=== PATIENT | female | born 1965 | race Hispanic/Latino ===

== ENCOUNTER 2018-05-17 11:02 | Emergency (ER) | payer BC ==
[2018-05-17 11:03] VITALS: BMI 21.7
[2018-05-17 12:01] VITALS: TEMP 98
[2018-05-17] MEDS ORDERED: Sodium Chloride 0.9% 1,000 ML IV STA (12:26)
[2018-05-17] MEDS ORDERED: Oxycodone/Acetaminophen 5/325 mg Tab PO STA (12:26)
--- NOTE | 2018-05-17 12:38 | ED PDOC ---
Arrival/HPI - General Chief Complaint: Abnormal Skin Integrity Time Seen by Provider: 05/17/18 11:57 Historian: Patient - History of Present Illness Narrative History of Present Illness (Text): 05/17/18 12:30 52 year old female, with no significant past medical history, who presents to the Emergency department complaining of a worsening painful cyst on her neck since 05/14/18. Patient states she went to Urgent Care on 05/14, where she was given Bactrin. Patient notes she went to her PMD on 05/15, where she was prescribed Cephalexin 500mg for 8 days and Mupirocin. Patient reports her daughter thought it was a blackhead about a month ago, so she squeezed it with her fingers and some "stuff" came out and recently this cyst resulted in same area. Patient states she had one on her arm in the past so she presented to Urgent Care, where they "cut it out." Patient notes that she had some pimple- like stiff blemishes emerge on her face in her 30's and then toward late 30's- 40's, the first cyst emerged on her arm and now her neck. Patient notes mild nausea and headaches. Pt denies any fever, chills, dizziness, or any other complaints. PMD: Dave Jimenez Time/Duration: > week (Pt notes painful cyst since ) Symptom Onset: Sudden Symptom Course: Unchanged Quality: Other (Pt describes as painful) Activities at Onset: Light Past Medical History - Provider Review Nursing Documentation Reviewed: Yes - Reproductive Menopause: Yes - Cardiac Hx Hypertension: Yes - Pulmonary Hx Respiratory Disorders: No - Neurological Hx Neurological Disorder: No - HEENT Hx HEENT Disorder: No - Renal Hx Renal Disorder: No - Endocrine/Metabolic Hx Endocrine Disorders: No - Hematological/Oncological Hx Blood Disorders: No - Integumentary Hx Dermatological Disorder: No - Musculoskeletal/Rheumatological Hx Musculoskeletal Disorders: No - Gastrointestinal Hx Gastrointestinal Disorders: No - Genitourinary/Gynecological Hx Genitourinary Disorders: No - Psychiatric Hx Psychophysiologic Disorder: No Hx Substance Use: No - Surgical History Hx Section: Yes Hx Gastric Bypass Surgery: Yes Hx Tonsillectomy: Yes Other/Comment: lipo/tummy tuck/breast reduction - Anesthesia Hx Anesthesia: Yes Family/Social History - Physician Review Nursing Documentation Reviewed: Yes Family/Social History: No Known Family HX Smoking Status: Former Smoker Hx Alcohol Use: Yes Hx Substance Use: No Allergies/Home Meds Allergies/Adverse Reactions: Allergies No Known Allergies Allergy (Verified 09/08/15 17:29) Home Medications: Home Meds Medication Instructions Recorded Confirmed Alprazolam [Xanax] 0.5 mg PO DAILY PRN 02/16/18 02/16/18 Aspirin [Adult Aspirin] 81 mg PO DAILY 02/16/18 02/16/18 Atorvastatin [Lipitor] 20 mg PO DAILY 02/16/18 02/16/18 Bupropion HCl [Wellbutrin Sr] 200 mg PO DAILY 02/16/18 02/16/18 Calcium Carb, Citrate/Vit D3 1 each PO DAILY 02/16/18 02/16/18 [Citracal + D ER Tablet] Cholecalciferol (Vitamin D3) 50,000 unit PO QWK 02/16/18 02/16/18 [Vitamin D3] Fenofibrate [Tricor] 145 mg PO DAILY 02/16/18 02/16/18 Folic Acid 1 mg PO DAILY 02/16/18 02/16/18 Lactobacillus Combination No.8 1 each PO DAILY 02/16/18 02/16/18 [Adult Probiotic] Multivitamin/Iron/Folic Acid 1 each PO DAILY 02/16/18 02/16/18 [Centrum Adults Tablet] Nebivolol [Bystolic] 10 mg PO DAILY 02/16/18 02/16/18 Olmesartan [BenicarNf] 20 mg PO DAILY 02/16/18 02/16/18 Review of Systems - Physician Review All systems were reviewed & negative as marked: Yes - Review of Systems Constitutional: Normal. absent: Fevers, Night Sweats Gastrointestinal: Nausea (Pt notes mild nausea). absent: Normal Neurological: Headache (Pt notes headaches). absent: Normal, Dizziness (Pt denies any dizziness) Physical Exam Vital Signs Reviewed: Yes Vital Signs Temp Pulse Resp BP Pulse Ox 05/17/18 11:35 98 F 80 18 108/60 97 Temperature: Afebrile Blood Pressure: Normal Pulse: Regular Respiratory Rate: Normal Appearance: Positive for: Well-Appearing, Non-Toxic Pain Distress: Mild Mental Status: Positive for: Alert and Oriented X 3 - Systems Exam Head: Present: Atraumatic, Normocephalic Pupils: Present: PERRL Extroacular Muscles: Present: EOMI Conjunctiva: Present: Normal Mouth: Present: Moist Mucous Membranes Neck: Present: Other (Tender fluctuant mass noted to posterior nape of neck. No erythema. No induration.) Respiratory/Chest: Present: Clear to Auscultation, Good Air Exchange. No: Respiratory Distress, Accessory Muscle Use Cardiovascular: Present: Regular Rate and Rhythm, Normal S1, S2. No: Murmurs Abdomen: No: Tenderness, Distention, Peritoneal Signs Back: Present: Normal Inspection Upper Extremity: Present: Normal Inspection. No: Cyanosis, Edema Lower Extremity: Present: Normal Inspection. No: Edema Neurological: Present: GCS=15, CN II-XII Intact, Speech Normal Skin: No: Erythematous Psychiatric: Present: Alert, Oriented x 3, Normal Insight, Normal Concentration Medical Decision Making ED Course and Treatment: 05/17/18 12:30 Impression: 52 year old female who presents to the Emergency department complaining of a worsening painful cyst on her neck since 05/14/18. Differential Diagnosis included but are not limited to: --Sebaceous cyst --Abscess --Cellulitis Plan: -- Labs -- Percocet -- IV fluids -- Valium -- Zofran --Lidocaine w/ Epinephrine --Wound culture -- Blood culture -- POC Urine test -- X-ray of chest -- Urinalysis -- Reassess and disposition Prior Visits: Notes and results from previous visits were reviewed. Progress Notes: 05/17/18 13:51 Labs reviewed with no acute leukocytosis or shift noted. Bedside ultrasound reveals anechoic fluid filled structure below the dermis w/ surrounding cobblestoning worrisome for abscess. vice president regulatory called and will come down to evaluate the patient. 05/17/18 14:48 Surgery resident at the bedside performing I & D after discussion with Dr. Juares(surgery) with informed consent obtained. She states patient may proceed with follow up outpatient and continue antibiotics at home. - Lab Interpretations Lab Results: 05/17/18 13:00 05/17/18 13:00 Lab Results 05/17/18 13:00: pO2 91 H, VBG pH 7.39, VBG pCO2 38.0 L, VBG HCO3 23.0, VBG Total CO2 24.2, VBG O2 Sat (Calc) 98.0 H, VBG Base Excess -1.7 L, VBG Potassium 5.0, Sodium 140.0, Chloride 108.0 H, Glucose 92, Lactate 1.6, FiO2 21.0, Venous Blood Potassium 5.0 05/17/18 13:00: Sodium 137, Chloride 107, Potassium 5.5 H, Carbon Dioxide 25, Anion Gap 11, BUN 26 H, Creatinine 1.0, Est GFR ( Amer) > 60, Est GFR (Non-Af Amer) 58, Random Glucose 96, Calcium 8.8, Total Bilirubin 0.2, AST 35, ALT 23, Alkaline Phosphatase 60, Total Protein 6.7, Albumin 3.9, Globulin 2.8, Albumin/Globulin Ratio 1.4 05/17/18 13:00: WBC 6.2, RBC 3.54, Hgb 11.5 L, Hct 35.9 L, MCV 101.4, MCH 32.5, MCHC 32.0, RDW 13.5, Plt Count 180, MPV 9.9, Gran % 58.8, Lymph % (Auto) 31.3, [place] % (Auto) 7.5 H, Eos % (Auto) 2.1, Baso % (Auto) 0.3, Gran # 3.66, Lymph # (Auto) 2.0, [place] # (Auto) 0.5, Eos # (Auto) 0.1, Baso # (Auto) 0.02, ESR Pending I have reviewed the lab results: Yes - RAD Interpretation Narrative RAD Interpretations (Text): X-Ray of chest reviewed by radiologist, shows: Dictator : Marisela Espino MD Report Date : 05/17/2018 13:16:27 IMPRESSION: No focal consolidation. Carbon Accountant: Radiologist - Medication Orders Current Medication Orders: Sodium Chloride (Sodium Chloride 0.9%) 1,000 mls @ 999 mls/hr IV .Q1H1M STA Stop: 05/17/18 13:26 Discontinued Medications Diazepam (Valium) 5 mg PO ONCE ONE; Protocol Stop: 05/17/18 12:27 Ondansetron HCl (Zofran Inj) 4 mg IVP STAT STA Stop: 05/17/18 12:27 Oxycodone/Acetaminophen (Percocet 5/325 Mg Tab) 1 tab PO STAT STA Stop: 12/16/18 12:27 - Scribe Statement The provider has reviewed the documentation as recorded by the Scribe Riri Star All medical record entries made by the Scribe were at my direction and personally dictated by me. I have reviewed the chart and agree that the record accurately reflects my personal performance of the history, physical exam, medical decision making, and the department course for this patient. I have also personally directed, reviewed, and agree with the discharge instructions and disposition. Disposition/Present on Arrival - Present on Arrival Any Indicators Present on Arrival: No History of DVT/PE: No History of Uncontrolled Diabetes: No Urinary Catheter: No History of Decub. Ulcer: No History Surgical Site Infection Following: None - Disposition Have Diagnosis and Disposition been Completed?: Yes Diagnosis: Abscess of neck Disposition: HOME/ ROUTINE Disposition Time: 14:57 Patient Plan: Discharge Condition: IMPROVED Discharge Instructions (ExitCare): Boil (DC), Abscess Incision and Drainage (DC) Print Language: DJIBOUTIAN Additional Instructions: All medical record entries made by the Scribe were at my direction and personally dictated by me. I have reviewed the chart and agree that the record accurately reflects my personal performance of the history, physical exam, medical decision making, and the department course for this patient. I have also personally directed, reviewed, and agree with the discharge instructions and disposition. Please follow up with the surgeon in 7-10 days for reevaluation of wound Please keep wound area dry Please take the antibiotics as prescribed Prescriptions: Clindamycin [Cleocin] 300 mg PO TID 10 Days #30 cap Referrals: Mor Cee MD [Staff Provider] - Follow up with primary Forms: [facility] ([place]ican), WORK NOTE
[2018-05-17 13:18] LABS: BASO # 0.02 K/mm3 (0.0-2.0); BASO % 0.3 % (0.0-3.0); EOS # 0.1 (0.0-0.7); EOS % 2.1 % (1.5-5.0); GRAN # 3.66 (1.4-6.5); GRAN % 58.8 % (50.0-68.0); HEMOGLOBIN 11.5 g/dL (12.0-16.0); LYMPH % 31.3 % (22.0-35.0); MEAN CELL VOLUME 101.4 fl (80.0-105.0); MEAN CORPUSCULAR HEMOGLOBIN 32.5 pg (25.0-35.0); MEAN PLATELET VOLUME 9.9 fl (7.0-11.0); MONO # 0.5 (0.1-0.6); MONO % 7.5 % (1.0-6.0); RBC 3.54 10^6/uL (3.5-6.1); RED CELL DISTRIBUTION WIDTH 13.5 % (11.5-14.5); WHITE BLOOD COUNT 6.2 10^3/uL (4.5-11.0)
--- NOTE | 2018-05-17 13:19 | RAD ---
HISTORY: neck pain COMPARISON: No prior. TECHNIQUE: Chest, one view. FINDINGS: LUNGS: No focal consolidation. Please note that chest x-ray has limited sensitivity for the detection of pulmonary masses. PLEURA: No significant pleural effusion identified. No definite pneumothorax . CARDIOVASCULAR: Heart size appears within normal limits. OSSEOUS STRUCTURES: No acute osseous abnormality identified. VISUALIZED UPPER ABDOMEN: Unremarkable. OTHER FINDINGS: None. IMPRESSION: No focal consolidation.
[2018-05-17 13:33] LABS: ALB/GLOB RATIO 1.4 (1.1-1.8); ALBUMIN 3.9 g/dL (3.0-4.8); ALT/SGPT 23 U/L (7-56); AST/SGOT 35 U/L (14-36); BLOOD UREA NITROGEN 26 mg/dL (7-21); CALCIUM 8.8 mg/dL (8.4-10.5); GFR NON-AFRICAN AMERICAN 58
[2018-05-17 13:40] LABS: VENOUS BLOOD GAS BASE EXCESS -1.7 mmol/L (0.0-2.0); VENOUS BLOOD GAS PO2 91 mm/Hg (30-55); VENOUS BLOOD PH 7.39 (7.32-7.43)
--- NOTE | 2018-05-17 15:30 | CP.PCM.CON ---
History of Present Illness - History of Present Illness History of Present Illness: Gewneral surgery consult note for Dr. cee consulted for infected sebaceous cyst/abscess Patient is a 52 yr old female PMH HTN, HLD, depression who presents with 3-4 day history of erythema pain and swelling of a "pimple" on her posterior midline neck. She had recently gone to see her primary care physician for antibiotics two days ago but didnt feel the abx she was given were working and believes she needs the area drained. Patient states she has had similar issues before which resolved with I&D and antibiotics. She does endorse a mild WALLER d/t muscle tension from pain. She denies any other associated symptoms at this time such as N/V, SOB, dizziness, blurred vision, confusion, weakness, CP, abdominal pain and extremity pain/ weakness. PMH: HTN, HLD< depression PSH: abdominoplasty, , all: nkda Review of Systems - Review of Systems All systems: reviewed and no additional remarkable complaints except (as per HPI) Past Patient History - Past Social History Smoking Status: Former Smoker - CARDIAC Hx Hypertension: Yes - PULMONARY Hx Respiratory Disorders: No - NEUROLOGICAL Hx Neurological Disorder: No - HEENT Hx HEENT Problems: No - RENAL Hx Chronic Kidney Disease: No - ENDOCRINE/METABOLIC Hx Endocrine Disorders: No - HEMATOLOGICAL/ONCOLOGICAL Hx Blood Disorders: No - INTEGUMENTARY Hx Dermatological Problems: No - MUSCULOSKELETAL/RHEUMATOLOGICAL Hx Musculoskeletal Disorders: No - GASTROINTESTINAL Hx Gastrointestinal Disorders: No - GENITOURINARY/GYNECOLOGICAL Hx Genitourinary Disorders: No - PSYCHIATRIC Hx Psychophysiologic Disorder: No Hx Substance Use: No - SURGICAL HISTORY Hx Section: Yes Hx Gastric Bypass Surgery: Yes Hx Tonsillectomy: Yes Other/Comment: lipo/tummy tuck/breast reduction - ANESTHESIA Hx Anesthesia: Yes Meds Home Medications: Home Medication List Medication Instructions Recorded Confirmed Type Clindamycin [Cleocin] 300 mg PO TID 10 Days #30 cap 05/17/18 Rx Allergies/Adverse Reactions: Allergies Allergy/AdvReac Type Severity Reaction Status Date / Time No Known Allergies Allergy Verified 09/08/15 17:29 Physical Exam - Constitutional Appears: Well, Non-toxic, No Acute Distress - Head Exam Head Exam: ATRAUMATIC, NORMOCEPHALIC - Eye Exam Eye Exam: EOMI - ENT Exam ENT Exam: Mucous Membranes Moist - Neck Exam Neck exam: Positive for: Full Rom, Tenderness (tenderness over posterior midline inferior area of erythema induration and fluctuance 1.5 cm x 1.5 cm no tenderness outside this area). Negative for: Lymphadenopathy, Meningismus, Thyromegaly - Respiratory Exam Respiratory Exam: NORMAL BREATHING PATTERN - Cardiovascular Exam Cardiovascular Exam: REGULAR RHYTHM - GI/Abdominal Exam GI & Abdominal Exam: Soft. absent: Distended, Guarding, Tenderness - Extremities Exam Extremities exam: Positive for: full ROM, pedal pulses present. Negative for: calf tenderness, pedal edema - Back Exam Back exam: absent: paraspinal tenderness, vertebral tenderness - Neurological Exam Neurological exam: Alert, CN II-XII Intact, Normal Gait, Oriented x3 - Psychiatric Exam Psychiatric exam: Normal Affect, Normal Mood - Skin Skin Exam: Dry, Erythema (over posterior inferior midline neck 1.5 cm x 1.5 cm area of erythema induration and mild fluctuance), Intact, Warm Results - Vital Signs Recent Vital Signs: Last Vital Signs Temp 98 F 05/17/18 11:35 Pulse 80 05/17/18 11:35 Resp 18 05/17/18 11:35 BP 108/60 05/17/18 11:35 Pulse Ox 97 05/17/18 11:35 - Labs Result Diagrams: 05/17/18 13:00 05/17/18 13:00 Labs: Laboratory Results - last 24 hr 05/17/18 05/17/18 05/17/18 13:00 13:00 13:00 WBC 6.2 RBC 3.54 Hgb 11.5 L Hct 35.9 L MCV 101.4 MCH 32.5 MCHC 32.0 RDW 13.5 Plt Count 180 MPV 9.9 Gran % 58.8 Lymph % (Auto) 31.3 [place] % (Auto) 7.5 H Eos % (Auto) 2.1 Baso % (Auto) 0.3 Gran # 3.66 Lymph # (Auto) 2.0 [place] # (Auto) 0.5 Eos # (Auto) 0.1 Baso # (Auto) 0.02 ESR 9 pO2 91 H VBG pH 7.39 VBG pCO2 38.0 L VBG HCO3 23.0 VBG Total CO2 24.2 VBG O2 Sat (Calc) 98.0 H VBG Base Excess -1.7 L VBG Potassium 5.0 Sodium 137 140.0 Chloride 107 108.0 H Glucose 92 Lactate 1.6 FiO2 21.0 Potassium 5.5 H Carbon Dioxide 25 Anion Gap 11 BUN 26 H Creatinine 1.0 Est GFR ( Amer) > 60 Est GFR (Non-Af Amer) 58 Random Glucose 96 Calcium 8.8 Total Bilirubin 0.2 AST 35 ALT 23 Alkaline Phosphatase 60 Total Protein 6.7 Albumin 3.9 Globulin 2.8 Albumin/Globulin Ratio 1.4 Venous Blood Potassium 5.0 Assessment & Plan - Assessment and Plan (Free Text) Assessment: 52 yr old female with inflamed/ infected abscess vs sebaceous cyst Plan: consent obtained and bedside I&D performed, tolerated well patient instructed to remove small amount of packing/dressing in 1-2 days PO abx per ED wound culture and gram stain sent patient to follow up with Dr. Cee in her office or this week, patient agrees patient instructed to take ibuprofen, tylenol or naproxen PRN at home for pain Patient may have work excuse for Friday and Friday of this week patient instructed to return to ED if she begins to have worsening symptoms discussed with Dr. Coleman Nair, PGY 1 - Date & Time Date: 05/17/18 Time: 14:45
--- NOTE | 2018-05-17 15:33 | PCM.PROC ---
Incision and Drainage - Time Time Performed: 15:00 - Time Out Time Out: Side verified, Site verified, Patient ID confirmed, Sterile procedures obs. - Consent obtained Consent obtained: Written - Performed by Performed by: Attending Physician - Indications Indications: Cutaneous abscess - Contraindications Contraindications: None - Location Location: Dorsal (dorsal inferior midline neck) - Dimensions Dimensions Length cm: 1.5 cm Dimensions width cm: 1.5 cm - Anesthetic Technique Anesthetic Technique: Local - Anesthetic Anesthetic: Lidocaine 1% w/epi - Procedure Procedure: Usual prep and drape, cm incision (0.5), Overlying area fluctuance, # scalpel used (11), Explored for loculations, Irrigated, Packed with sterile gauze - Drained Drained: ml pus (1) - Post-procedure Post procedure: Neurovascular status norm - Complications Complications: None - Patient tolerated procedure Patient tolerated procedure: Well
[2018-05-17 15:46] VITALS: BP 129/54; PULSE 85; RESP 19; O2SAT 99
== END 2018-05-17 15:44 | disposition home or self-care (01) ==
LOC: ED 11:02
DX: L02.11 Cutaneous abscess of neck (principal); E78.5 Hyperlipidemia, unspecified; I10 Essential (primary) hypertension; Z87.891 Personal history of nicotine dependence
CPT/HCPCS: 10060; 71045; 80053; 82803; 85025; 85651; 87040; 87070; 96361; 96374; 99283; J2405; J7030